=== PATIENT | female | born 1935 | race Caucasian/White ===

== ENCOUNTER → 2016-04-06 | Outpatient (CLI) | payer OTHER | LOC: HYPER 07:00 | DX: S81.801A Unspecified open wound, right lower leg, initial encounter (principal); S81.802A Unspecified open wound, left lower leg, initial encounter; I48.91 Unspecified atrial fibrillation; R21 Rash and other nonspecific skin eruption; E78.00 Pure hypercholesterolemia, unspecified; I10 Essential (primary) hypertension; I77.9 Disorder of arteries and arterioles, unspecified; X58.XXXA Exposure to other specified factors, initial encounter; Y93.9 Activity, unspecified; Y92.9 Unspecified place or not applicable; Y99.9 Unspecified external cause status; R60.0 Localized edema; Z86.73 Personal history of transient ischemic attack (TIA), and cerebral infarction without residual deficits ==

== ENCOUNTER → 2017-01-25 | Outpatient (CLI) | payer OTHER | LOC: HYPER 07:13 | DX: S80.822A Blister (nonthermal), left lower leg, initial encounter (principal); I10 Essential (primary) hypertension; E78.00 Pure hypercholesterolemia, unspecified; I48.91 Unspecified atrial fibrillation; I25.10 Atherosclerotic heart disease of native coronary artery without angina pectoris; Z96.641 Presence of right artificial hip joint; Z96.652 Presence of left artificial knee joint; Z86.73 Personal history of transient ischemic attack (TIA), and cerebral infarction without residual deficits; Z90.710 Acquired absence of both cervix and uterus; X58.XXXA Exposure to other specified factors, initial encounter; Y92.89 Other specified places as the place of occurrence of the external cause; Y93.89 Activity, other specified; Y99.8 Other external cause status ==

== ENCOUNTER → 2017-02-08 | Outpatient (CLI) | payer OTHER | LOC: HYPER 06:59 | DX: S80.822D Blister (nonthermal), left lower leg, subsequent encounter (principal); R21 Rash and other nonspecific skin eruption; I10 Essential (primary) hypertension; E78.00 Pure hypercholesterolemia, unspecified; Z86.73 Personal history of transient ischemic attack (TIA), and cerebral infarction without residual deficits; I48.91 Unspecified atrial fibrillation; Z90.710 Acquired absence of both cervix and uterus; Z96.652 Presence of left artificial knee joint; Z96.641 Presence of right artificial hip joint; X58.XXXD Exposure to other specified factors, subsequent encounter ==

== ENCOUNTER → 2019-12-04 | Outpatient (CLI) | payer OTHER | LOC: SJCVC 13:53 | PROVIDERS: ATTEND Internal Medicine Cardiovascular Disease | DX: R94.31 Abnormal electrocardiogram [ECG] [EKG] (principal); I45.10 Unspecified right bundle-branch block; I48.0 Paroxysmal atrial fibrillation; I10 Essential (primary) hypertension; E78.00 Pure hypercholesterolemia, unspecified; I08.1 Rheumatic disorders of both mitral and tricuspid valves; Z79.899 Other long term (current) drug therapy ==

== ENCOUNTER → 2020-07-06 | Outpatient (CLI) | payer OTHER | LOC: SJCVCIMAG 07:43 | PROVIDERS: ATTEND Internal Medicine Cardiovascular Disease | DX: R94.31 Abnormal electrocardiogram [ECG] [EKG] (principal); I08.8 Other rheumatic multiple valve diseases; I87.2 Venous insufficiency (chronic) (peripheral); R00.1 Bradycardia, unspecified; I44.0 Atrioventricular block, first degree; I45.2 Bifascicular block; I10 Essential (primary) hypertension; I48.0 Paroxysmal atrial fibrillation; E05.00 Thyrotoxicosis with diffuse goiter without thyrotoxic crisis or storm; E03.9 Hypothyroidism, unspecified; I77.9 Disorder of arteries and arterioles, unspecified; M81.0 Age-related osteoporosis without current pathological fracture; Z72.89 Other problems related to lifestyle; Z79.899 Other long term (current) drug therapy; Z88.0 Allergy status to penicillin ==

== ENCOUNTER → 2020-07-16 | Outpatient (CLI) | payer OTHER | LOC: SJCVC 14:54 | PROVIDERS: ATTEND Nuclear Medicine Nuclear Cardiology | DX: E78.00 Pure hypercholesterolemia, unspecified (principal); I10 Essential (primary) hypertension; I48.0 Paroxysmal atrial fibrillation; M79.89 Other specified soft tissue disorders; M79.604 Pain in right leg; M79.605 Pain in left leg; E03.9 Hypothyroidism, unspecified; Z72.89 Other problems related to lifestyle; Z88.0 Allergy status to penicillin; Z79.2 Long term (current) use of antibiotics; Z79.899 Other long term (current) drug therapy ==

== ENCOUNTER → 2020-07-27 | Outpatient (CLI) | payer OTHER | LOC: SJCVCIMAG 07:28 | PROVIDERS: ATTEND Internal Medicine Cardiovascular Disease | DX: I73.9 Peripheral vascular disease, unspecified (principal); M79.661 Pain in right lower leg; M79.662 Pain in left lower leg ==

== ENCOUNTER → 2021-02-10 | Outpatient (CLI) | payer OTHER | LOC: SJCVC 14:39 | PROVIDERS: ATTEND Internal Medicine Cardiovascular Disease | DX: R94.31 Abnormal electrocardiogram [ECG] [EKG] (principal); I45.2 Bifascicular block; I48.0 Paroxysmal atrial fibrillation; I10 Essential (primary) hypertension; E78.00 Pure hypercholesterolemia, unspecified; I38 Endocarditis, valve unspecified; E03.9 Hypothyroidism, unspecified; D68.59 Other primary thrombophilia; Z72.89 Other problems related to lifestyle; Z79.899 Other long term (current) drug therapy; Z88.0 Allergy status to penicillin; Z82.49 Family history of ischemic heart disease and other diseases of the circulatory system ==